=== PATIENT | female | born 1990 | race Hispanic/Latino ===

== ENCOUNTER 2017-08-09 20:29 | Emergency (ER) | payer BC ==
--- OUTSIDE RECORDS SUMMARY | 2017-08-09 20:31 | XMS REPORT ---
:1990 Author Organization [facility] Care Team Providers Name Role Phone Jennifer Roberson Provider Role Unavailable Allergies No Known Allergies Problems Problem Type Condition Code Onset Dates Condition Status Problem Normal in second trimester Z34.92 Active Assessment Normal in second trimester Z34.92 Active Problem BMI 36.0-36.9,adult Z68.36 Active Assessment BMI 36.0-36.9,adult Z68.36 Active Medications No Known Medications Results No Known Results Summary Purpose [facility] Submission
--- OUTSIDE RECORDS SUMMARY | 2017-08-09 20:31 | XMS REPORT ---
:1990 Author Organization [employer] Care Team Providers Name Role Phone Jennifer Roberson Provider Role Unavailable Allergies, Adverse Reactions, Alerts Substance Reaction Event Type N.K.D.A. Info Not Available Non Drug Allergy Problems Problem Type Condition Code Onset Dates Condition Status Assessment Lower abdominal pain, unspecified R10.30 Active Assessment Other specified related O26.899 Active conditions, unspecified trimester Problem Normal in second Z34.92 Active trimester Medications No Known Medications Results Name Result Date Reference Range Unit Abnormality Flag URINALYSIS AUTO W/O SCOPE (93099) ----NIT Neg 20170630 ----URO 0.2 20170630 ----PROTEIN Neg 20170630 ----pH 6.0 20170630 ----BLO Trace 20170630 ----GLUCOSE Neg 20170630 ----TARIK 1+ 20170630 ----BILIRUBIN Neg [id number] ----KETONES Trace 20170630 ----SPECIFIC GRAVITY 1.025 20170630 Summary Purpose eClinicalWorks Submission
--- OUTSIDE RECORDS SUMMARY | 2017-08-09 20:31 | XMS REPORT ---
:1990 Author Organization [employer] Care Team Providers Name Role Phone Jennifer Roberson Provider Role Unavailable Allergies No Known Allergies Problems Problem Type Condition Code Onset Dates Condition Status Assessment Normal in second trimester Z34.92 Active Problem Normal in second trimester Z34.92 Active Medications No Known Medications Results No Known Results Summary Purpose [facility] Submission
--- OUTSIDE RECORDS SUMMARY | 2017-08-09 20:31 | XMS REPORT ---
:1990 Author Organization eClinicalWorks Care Team Providers Name Role Phone Jennifer Roberson Provider Role Unavailable Allergies No Known Allergies Problems Problem Type Condition Code Onset Dates Condition Status Assessment Normal in second trimester Z34.92 Active Problem Normal in second trimester Z34.92 Active Medications No Known Medications Results No Known Results Summary Purpose [employer]ClinicalWorks Submission
--- NOTE | 2017-08-09 21:16 | RAD REPORT ---
EXAM DESCRIPTION: US - Abdomen Exam Limited - 08/09/2017 9:06 pm CLINICAL HISTORY: Abdominal pain, right upper quadrant pain, nonfasting patient COMPARISON: None. FINDINGS: No gallstones, sludge or other abnormalities within the gallbladder lumen. There is no wal l thickening or pericholecystic fluid. Gallbladder is partially contracted. Patient was not fully fas ting for the examination. No common duct stone or biliary tree dilatation identified. IMPRESSION: No gallbladder or biliary tree abnormality.
[2017-08-09 21:20] LABS: Absolute Lymphocytes (CBC) 2.6 K/uL (0.7-4.9); Absolute Monocytes 0.6 K/uL (0.1-1.3); Absolute Neutrophil 7.9 K/uL (1.8-8.0); Basophils % 0.3 % (0-1.3); Eosinophils % 0.2 % (0-4.4); Hematocrit 34.4 % (36.0-45.0); Lymphocytes % 23.4 % (15.3-44.8); MCH 31.3 pg (27.0-35.0); MCV 90.7 fL (80-100); MPV 7.9 fL (7.6-11.3); Monocytes % 5.7 % (3.3-12.3); RBC Red Blood Cell Count 3.79 M/uL (3.86-4.86)
[2017-08-09 21:24] LABS: ALT/SGPT 17 U/L (12-78); AST/SGOT 18 U/L (15-37); Albumin 2.6 g/dL (3.4-5.0); Alkaline Phosphatase 92 U/L (45-117); BUN Blood Urea Nitrogen 8 mg/dL (7-18); Bicarbonate 23 mmol/L (21-32); Bilirubin Direct < 0.1 mg/dL (0-0.2); Bilirubin Total 0.1 mg/dL (0.2-1.0); Glucose Level 72 mg/dL (74-106); Lipase 239 U/L (73-393); Potassium 3.7 mmol/L (3.5-5.1); Protein, Total 6.4 g/dL (6.4-8.2); Sodium Level 138 mmol/L (136-145)
--- NOTE | 2017-08-09 21:39 | ER ---
Nurse's Notes [facility] Name: Cydney Mccann Age: 27 yrs Sex: Female : 1990 Arrival Date: 08/09/2017 Time: 20:31 Bed 16 Private MD: Diagnosis: Gastritis, unspecified;Gastro-esophageal reflux disease Presentation: 08/09 20:36 Presenting complaint: Patient states: epigastric pain, increased after meals. pt denies ak1 N/V. pt 30 weeks , cleared by L\T\Shira stafford. Dr. 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 Transition of care: patient was not received from another setting of care. Onset of symptoms is unknown. Risk Assessment: Do you want to hurt yourself or someone else? Patient reports no desire to harm self or others. Initial Sepsis Screen: Does the patient meet any 2 criteria? No. Patient's initial sepsis screen is negative. Does the patient have a suspected source of infection? No. Patient's initial sepsis screen is negative. Care prior to arrival: None. 20:36 Method Of Arrival: Ambulatory ak1 20:36 Acuity: JEY 3 ak1 MANAGER JAVA: 20:38 LMP 01/08/2017, Verified, EDC 10/15/2017, Gestational age from LMP: 30 weeks 4 ak1 days Historical: - Allergies: 20:38 No Known Allergies; ak1 - Home Meds: 20:38 None [Active]; ak1 - PMHx: 20:38 None; ak1 - PSHx: 20:38 None; ak1 - Immunization history:: Adult Immunizations up to date. - Social history:: Smoking status: Patient/guardian denies using tobacco. - Ebola Screening: : No symptoms or risks identified at this time. - Family history:: not pertinent. - Hospitalizations: : No recent hospitalization is reported. Screenin:38 Abuse screen: Denies threats or abuse. Denies injuries from another. Nutritional rv screening: No deficits noted. Tuberculosis screening: No symptoms or risk factors identified. Fall Risk None identified. Assessment: 20:36 General: Appears in no apparent distress. comfortable, Behavior is calm, cooperative. rv Pain: Complains of pain in abdomen Pain currently is 5 out of 10 on a pain scale. Neuro: Level of Consciousness is awake, alert, obeys commands, Oriented to person, place, time, situation. Cardiovascular: Heart tones S1 S2 present. Respiratory: Airway is patent. GI: Bowel sounds present X 4 quads. Abd is soft and non tender X 4 quads. Reports upper abdominal pain, Pain is 5 out of 10 on a pain scale. : No signs and/or symptoms were reported regarding the genitourinary system. EENT: No signs and/or symptoms were reported regarding the EENT system. Derm: Skin is intact. Musculoskeletal: No signs and/or symptoms reported regarding the musculoskeletal system. 20:51 Reassessment: PT TO U/S WITH TRAVEL CLERK. bp 21:18 Reassessment: Patient appears in no apparent distress at this time. Patient and/or aa1 family updated on plan of care and expected duration. Pain level reassessed. Patient is alert, oriented x 3, equal unlabored respirations, skin warm/dry/pink. Pt back from u/s. 21:49 Reassessment: PT D/C HOME AMBULATORY WITH FAMILY, DX WITH GASTRITIS AND GERD. bp Vital Signs: 20:38 BP 123 / 79; Pulse 87; Resp 20; Temp 98.6(O); Pulse Ox 100% on R/A; Weight 97.52 kg ak1 (R); Height 5 ft. 4 in. (162.56 cm) (R); Pain 5/10; 21:18 BP 102 / 72; Pulse 82; Resp 16; Pulse Ox 99% on R/A; aa1 21:48 BP 102 / 63; Pulse 86; Resp 18; Pulse Ox 99% ; aa1 20:38 Body Mass Index 36.90 (97.52 kg, 162.56 cm) ak1 ED Course: 20:31 Patient arrived in ED. es 20:34 Jb Price MD is Attending Physician. rn 20:37 Triage completed. ak1 20:38 Arm band placed on Patient placed in an exam room, on a stretcher, on pulse oximetry, ak1 Patient notified of wait time. 20:38 Patient has correct armband on for positive identification. Placed in gown. Bed in low rv position. Call light in reach. Side rails up X 1. Adult w/ patient. Pulse ox on. NIBP on. 20:51 Inserted saline lock: 20 gauge in left forearm, using aseptic technique. Blood bp collected. 21:06 US Abdomen Limited In Process Unspecified. EDMS 21:16 Gaby Jorgensen, RN is Primary Nurse. aa1 21:49 No provider procedures requiring assistance completed. IV discontinued, intact, bp bleeding controlled, No redness/swelling at site. Pressure dressing applied. Administered Medications: No medications were administered Outcome: 21:38 Discharge ordered by MD. rn 21:49 Discharged to home ambulatory, with family. bp 21:49 Condition: stable 21:49 Discharge instructions given to patient, Instructed on discharge instructions, follow up and referral plans. Demonstrated understanding of instructions, follow-up care. 21:50 Patient left the ED. bp Signatures: Dispatcher [employer] EDDE Gaby Jorgensen, RN RN aa1 Penny Covington Roman, MD MD rn Krenek, Amber, RN RN ak1 Tyrone Oquendo RN RN Adrián Solitario, RN RN rv
--- NOTE | 2017-08-09 21:39 | EDPHYS ---
Physician Documentation [facility] Name: Cydney Mccann Age: 27 yrs Sex: Female : 1990 Arrival Date: 08/09/2017 Time: 20:31 Bed 16 Private MD: ED Physician Jb Price HPI: 08/09 21:36 This 27 yrs old Female presents to ER via Ambulatory with complaints of rn Abdominal Pain. 21:36 The patient presents with abdominal pain in the epigastric area. Onset: The rn symptoms/episode began/occurred yesterday. The symptoms do not radiate. Associated signs and symptoms: Pertinent negatives: nausea and vomiting, blood in stools, fever, vomiting, vomiting blood. The symptoms are described as achy. Modifying factors: The symptoms are alleviated by nothing, the symptoms are aggravated by food. Severity of pain: At its worst the pain was mild in the emergency department the pain is unchanged. The patient has not experienced similar symptoms in the past. The patient has not recently seen a physician. Reports epigastric aching after eating, improved with tums. . 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 - Social history:: Smoking status: Patient/guardian denies using tobacco. - Ebola Screening: : No symptoms or risks identified at this time. - Family history:: not pertinent. - Hospitalizations: : No recent hospitalization is reported. ROS: 21:36 Constitutional: Negative for fever, chills, and weight loss, Eyes: Negative for injury, rn pain, redness, and discharge, Cardiovascular: Negative for chest pain, palpitations, and edema, Respiratory: Negative for shortness of breath, cough, wheezing, and pleuritic chest pain, Abdomen/GI: Negative for vomiting, diarrhea, and constipation, MS/Extremity: Negative for injury and deformity, Skin: Negative for injury, rash, and discoloration, Neuro: Negative for headache, weakness, numbness, tingling, and seizure. Exam: 21:36 Constitutional: This is a well developed, well nourished patient who is awake, alert, rn and in no acute distress. Abdomen/GI: Soft, non-tender, with normal bowel sounds. No distension or tympany. No guarding or rebound. No evidence of tenderness throughout. Skin: Warm, dry with normal turgor. Normal color with no rashes, no lesions, and no evidence of cellulitis. Vital Signs: 20:38 BP 123 / 79; Pulse 87; Resp 20; Temp 98.6(O); Pulse Ox 100% on R/A; Weight 97.52 kg ak1 (R); Height 5 ft. 4 in. (162.56 cm) (R); Pain 5/10; 21:18 BP 102 / 72; Pulse 82; Resp 16; Pulse Ox 99% on R/A; aa1 21:48 BP 102 / 63; Pulse 86; Resp 18; Pulse Ox 99% ; aa1 20:38 Body Mass Index 36.90 (97.52 kg, 162.56 cm) ak1 MDM: 20:38 Patient medically screened. rn 21:36 Differential diagnosis: cholecystitis, Cholelithiasis, gastritis, gastroesophageal rn reflux disease, pancreatitis, Peptic Ulcer Disease, urinary tract infection. Data reviewed: vital signs, nurses notes, lab test result(s), radiologic studies, ultrasound, and as a result, I will discharge patient. Counseling: I had a detailed discussion with the patient and/or guardian regarding: the historical points, exam findings, and any diagnostic results supporting the discharge/admit diagnosis, lab results, radiology results, the need for outpatient follow up, to return to the emergency department if symptoms worsen or persist or if there are any questions or concerns that arise at home. Special discussion: Based on the patient's Hx, exam, and Dx evaluation, there is no indication for emergent surgery or inpatient Tx. It is understood by the patient/guardian that if the Sx's persist or worsen they need to return immediately for re-evaluation. I discussed with the patient/guardian in detail that at this point there is no indication for admission to the hospital. It is understood, however, that if the symptoms persist or worsen the patient needs to return immediately for re-evaluation. Based on the history and exam findings, there is no indication for further emergent testing or inpatient evaluation. I discussed with the patient/guardian the need to see the OB Gyne specialist for further evaluation of the symptoms. 08/09 20:44 Order name: Basic Metabolic Panel; Complete Time: 21:36 rn 08/09 20:44 Order name: CBC with Diff; Complete Time: 21:36 rn 08/09 20:44 Order name: Hepatic Function; Complete Time: 21:36 rn 08/09 20:44 Order name: Lipase; Complete Time: 21:36 rn 08/09 20:44 Order name: US Abdomen Limited; Complete Time: 21:19 rn Administered Medications: No medications were administered Disposition: 08/09/17 21:38 Discharged to Home. Impression: Gastritis, unspecified, Gastro-esophageal reflux disease. - Condition is Stable. - Discharge Instructions: Gastritis, Adult, Gastroesophageal Reflux Disease, Adult. - Medication Reconciliation Form, Thank You Letter, Antibiotic Education, Prescription Opioid Use form. - Follow up: Private Physician; When: As needed; Reason: Recheck today's complaints, Re-evaluation by your physician. - Problem is new. - Symptoms have improved. Signatures: Dispatcher [employer] EDMS Jb Price MD MD rn Krenek, Amber, RN RN ak1 Tyrone Oquendo RN RN bp Corrections: (The following items were deleted from the chart) 21:50 21:38 08/09/2017 21:38 Discharged to Home. Impression: Gastritis, unspecified; bp Gastro-esophageal reflux disease. Condition is Stable. Forms are Medication Reconciliation Form, Thank You Letter, Antibiotic Education, Prescription Opioid Use. Follow up: Private Physician; When: As needed; Reason: Recheck today's complaints, Re-evaluation by your physician. Problem is new. Symptoms have improved. rn
[2017-08-09 21:58] VITALS: TEMP 98.6
[2017-08-09 21:59] VITALS: O2SAT 99
[2017-08-09 22:00] VITALS: BP 102/63
== END 2017-08-09 21:50 | disposition home or self-care (01) ==
LOC: ER 20:29
DX: K29.70 Gastritis, unspecified, without bleeding (principal); K21.9 Gastro-esophageal reflux disease without esophagitis
CPT/HCPCS: 36415; 76705; 80048; 80076; 83690; 85025; 99284

== ENCOUNTER 2017-10-19 09:50 | Inpatient (IN) | payer BC ==
--- OUTSIDE RECORDS SUMMARY | 2017-10-19 09:57 | XMS REPORT ---
[...] Unit Abnormality Flag URINALYSIS AUTO W/O SCOPE (15273) ----NIT Neg 20170630 ----URO 0.2 20170630 ----PROTEIN Neg 20170630 ----pH 6.0 20170630 ----BLO Trace 20170630 ----GLUCOSE Neg 20170630 ----TARIK 1+ 20170630 ----BILIRUBIN Neg 20170630 ----KETONES Trace 20170630 ----SPECIFIC GRAVITY 1.025 20170630 Summary Purpose eClinicalWorks Submission
--- OUTSIDE RECORDS SUMMARY | 2017-10-19 09:57 | XMS REPORT ---
:1990 Author Organization eClinicalWorks Care Team Providers Name Role Phone Jennifer Roberson Provider Role Unavailable Allergies No Known Allergies Problems Problem Type Condition Code Onset Dates Condition Status Assessment Normal in second trimester Z34.92 Active Problem Normal in second trimester Z34.92 Active Medications No Known Medications Results No Known Results Summary Purpose [facility] Submission
--- OUTSIDE RECORDS SUMMARY | 2017-10-19 09:57 | XMS REPORT ---
:1990 Author Organization [employer] [employer] Care Team Providers Name Role Phone Jennifer Roberson Provider Role Unavailable Allergies No Known Allergies Problems Problem Type Condition Code Onset Dates Condition Status Problem Normal in second trimester Z34.92 Active Assessment Normal in second trimester Z34.92 Active Problem BMI 36.0-36.9,adult Z68.36 Active Assessment BMI 36.0-36.9,adult Z68.36 Active Medications No Known Medications Results No Known Results Summary Purpose [employer] Submission
--- OUTSIDE RECORDS SUMMARY | 2017-10-19 09:57 | XMS REPORT ---
:1990 Author Organization eClinicalWorks Care Team Providers Name Role Phone Jennifer Roberson Provider Role Unavailable Allergies No Known Allergies Problems Problem Type Condition Code Onset Dates Condition Status Problem BMI 36.0-36.9,adult Z68.36 Active Problem Encounter for supervision of normal Z34.03 Active first in third trimester Assessment Encounter for supervision of normal Z34.03 Active first in third trimester Assessment BMI 36.0-36.9,adult Z68.36 Active Medications No Known Medications Results No Known Results Summary Purpose eClinicalWorks Submission
--- OUTSIDE RECORDS SUMMARY | 2017-10-19 09:58 | XMS REPORT ---
:1990 Author Organization eClinicalWorks Care Team Providers Name Role Phone Jennifer Roberson Provider Role Unavailable Allergies No Known Allergies Problems Problem Type Condition Code Onset Dates Condition Status Problem Encounter for supervision of normal Z34.03 Active first in third trimester Problem BMI 38.0-38.9,adult Z68.38 Active Assessment Encounter for supervision of normal Z34.03 Active first in third trimester Medications Medication Code System Code Instructions Start Date End Date Status Dosage Breast Pump [facility] [id number] - Oct 11, Active as directed 2017 Results No Known Results Summary Purpose eClinicalWorks Submission
--- OUTSIDE RECORDS SUMMARY | 2017-10-19 09:58 | XMS REPORT ---
:1990 Author Organization eClinicalWorks Care Team Providers Name Role Phone Jennifer Roberson Provider Role Unavailable Allergies No Known Allergies Problems Problem Type Condition Code Onset Dates Condition Status Problem Encounter for supervision of normal Z34.03 Active first in third trimester Problem BMI 38.0-38.9,adult Z68.38 Active Medications Medication Code System Code Instructions Start Date End Date Status Dosage Breast Pump [facility] [id number] - Oct 11, Active as directed 2017 Results No Known Results Summary Purpose [employer] Submission
--- OUTSIDE RECORDS SUMMARY | 2017-10-19 09:58 | XMS REPORT ---
:1990 Author Organization eClinicalWorks Care Team Providers Name Role Phone Jennifer Roberson Provider Role Unavailable Allergies No Known Allergies Problems Problem Type Condition Code Onset Dates Condition Status Problem Encounter for supervision of normal Z34.03 Active first in third trimester Problem BMI 37.0-37.9, adult Z68.37 Active Assessment BMI 37.0-37.9, adult Z68.37 Active Assessment Encounter for supervision of normal Z34.03 Active first in third trimester Medications No Known Medications Results No Known Results Summary Purpose eClinicalWorks Submission
--- OUTSIDE RECORDS SUMMARY | 2017-10-19 09:58 | XMS REPORT ---
:1990 Author Organization eClinicalWorks Care Team Providers Name Role Phone Jennifer Roberson Provider Role Unavailable Allergies No Known Allergies Problems Problem Type Condition Code Onset Dates Condition Status Problem Encounter for supervision of normal Z34.03 Active first in third trimester Problem BMI 37.0-37.9, adult Z68.37 Active Assessment Encounter for supervision of normal Z34.03 Active first in third trimester Medications No Known Medications Results No Known Results Summary Purpose eClinicalWorks Submission
--- OUTSIDE RECORDS SUMMARY | 2017-10-19 09:58 | XMS REPORT ---
[...] Active first in third trimester Assessment BMI 37.0-37.9, adult Z68.37 Active Medications No Known Medications Results No Known Results Immunizations Vaccine Administration Date TDAP > 7 Years-Adacel September 13, 2017 Summary Purpose eClinicalWorks Submission
--- OUTSIDE RECORDS SUMMARY | 2017-10-19 09:58 | XMS REPORT ---
[...] Active first in third trimester Assessment BMI 38.0-38.9,adult Z68.38 Active Medications No Known Medications Results No Known Results Summary Purpose eClinicalWorks Submission
--- OUTSIDE RECORDS SUMMARY | 2017-10-19 09:58 | XMS REPORT ---
:1990 Author Organization eClinicalWorks Care Team Providers Name Role Phone Jennifer Roberson Provider Role Unavailable Allergies No Known Allergies Problems Problem Type Condition Code Onset Dates Condition Status Problem Encounter for supervision of normal Z34.03 Active first in third trimester Problem BMI 37.0-37.9, adult Z68.37 Active Medications No Known Medications Results No Known Results Summary Purpose [employer] Submission
--- OUTSIDE RECORDS SUMMARY | 2017-10-19 09:58 | XMS REPORT ---
[...] trimester Assessment BMI 38.0-38.9,adult Z68.38 Active Medications Medication Code System Code Instructions Start Date End Date Status Dosage Breast Pump [facility] [id number] - Oct 11, Active as directed 2017 Results No Known Results Summary Purpose eClinicalWorks Submission
[2017-10-19] MEDS ORDERED: Ringers Lactate 1,000 ML IV PRN (10:17)
[2017-10-19] MEDS ORDERED: ONDANSETRON 4 MG/2 ML VIAL IV PRN (10:20)
[2017-10-19] MEDS ORDERED: DIPHENHYDRAMINE 50 MG/ML VIAL IV PRN (10:20)
[2017-10-19] MEDS ORDERED: METOCLOPRAMIDE 10 MG/2mL INJ IV PRN (10:20)
[2017-10-19] MEDS ORDERED: ACETAMINOPHEN 500 MG TAB PO PRN (10:20)
[2017-10-19] MEDS ORDERED: miSOPROStol 100 MCG TAB PO ONE (10:25)
--- NOTE | 2017-10-19 10:46 | RAD REPORT ---
EXAM DESCRIPTION: US - OB Limited - 10/19/2017 10:26 am CLINICAL HISTORY: presentation Limited examination. COMPARISON: OB Complete dated 05/30/2017 FINDINGS: A limited examination was requested by the referring physician. A single cephalic presenting gestation is identified. Heart rate normal. Estimated age is 40 weeks 5 days. IMPRESSION: Single live intrauterine fetus in the cephalic presentation. A limited study was request ed.
[2017-10-19] MEDS ORDERED: Ringers Lactate 1,000 ML IV SCH (11:00)
[2017-10-19 11:54] LABS: RPR Titer ND
[2017-10-19 11:56] LABS: Absolute Lymphocytes (CBC) 1.7 K/uL (0.7-4.9); Absolute Monocytes 0.4 K/uL (0.1-1.3); Absolute Neutrophil 6.5 K/uL (1.8-8.0); Basophils % 0.2 % (0-1.3); Hematocrit 35.4 % (36.0-45.0); MCH 30.8 pg (27.0-35.0); MCV 89.6 fL (80-100); MPV 8.4 fL (7.6-11.3); Monocytes % 5.1 % (3.3-12.3); RBC Red Blood Cell Count 3.95 M/uL (3.86-4.86)
[2017-10-19 12:01] LABS: Urine Appearance CLEAR; Urine Bilirubin NEGATIVE (NEG); Urine Blood NEGATIVE (NEG); Urine Color YELLOW; Urine Glucose NEGATIVE (NEG); Urine Protein NEGATIVE (NEG); Urine Urobilinogen 0.2 mg/dL (0.2-1.0); Urine pH 5.5 (5.0-7.0)
[2017-10-19 12:09] LABS: Urine Microscopic Reflex NO UMIC
[2017-10-19 12:11] LABS: BUN Blood Urea Nitrogen 8 mg/dL (7-18); Bicarbonate 24 mmol/L (21-32); Glucose Level 79 mg/dL (74-106); Potassium 3.9 mmol/L (3.5-5.1); Sodium Level 140 mmol/L (136-145)
[2017-10-19 12:34] VITALS: BMI 39.4
--- NOTE | 2017-10-19 15:43 | P.HP ---
Certification for Inpatient Patient admitted to: Inpatient With expected LOS: >2 Midnights Patient will require the following post-hospital care: None Practitioner: I am a practitioner with admitting privileges, knowledge of patient current condition, hospital course, and medical plan of care. Services: Services provided to patient in accordance with Admission requirements found in Title 42 Section 412.3 of the Code of Federal Regulations Patient History Date of Service: 10/19/17 Reason for admission: Elective induction of labor History of Present Illness: 27-year-old G 1 at 40 weeks and 5 days presents for elective induction of labor. She is had adequate care, and transferred to [facility] in mid 2nd trimester. has been complicated by obesity with BMI of 39.5, approximating weight gain during : 50 lb. CHRISTOPHER: 10/14/2017. GBS negative Allergies No Known Allergies Allergy (Unverified 04/24/16 20:51) Home Medications: Pnv Cmb#95/Ferrous Fumarate/FA [ Tablet] 1 each PO DAILY 10/19/17 - Past Medical/Surgical History Has patient received pneumonia vaccine in the past: No Diabetic: No Past Medical History: Patient denies medical history Past Surgical History: Patient denies surgical history - Family History Mother -: Hypertension, Other (see notes) Notes: TB (latent) was already treated Father -: Hypertension, Diabetes - Social History Smoking Status: Never smoker Alcohol use: No CD- Drugs: No Caffeine use: No Place of Residence: Home Review of Systems 10-point ROS is otherwise unremarkable Physical Examination - Vital Signs Temperature: 98.0 F Blood Pressure: 125/79 Pulse: 75 Respirations: 18 - Physical Exam General: Alert, In no apparent distress, Oriented x3 HEENT: Atraumatic, Normocephalic Respiratory: Other (Normal effort) Cardiovascular: Normal pulses Musculoskeletal: Swelling (3+ B/L pedal edema) Integumentary: No rashes, No breakdown Neurological: Normal speech, Normal strength at 5/5 x4 extr - Studies Laboratory Data (last 24 hrs) 10/19/17 11:39: Sodium 140, Potassium 3.9, BUN 8, Creatinine 0.40 L, Glucose 79 10/19/17 11:39: WBC 8.7, Hgb 12.2, Hct 35.4 L, Plt Count 212 Female Exam - Female Pelvic Cervix: Dilation (2), Effacement (50), station (-3) - Obstetrics heart rate tracing: Category 1 Contractions: Frequency (Irregular) Amniotic membrane: Intact Assessment and Plan - Problems (Diagnosis) (1) Elective induction of labor planned Current Visit: Yes Status: Acute Plan: Admit patient to L&D. Routine labs ordered. Will start cervical ripening with Cytotec, given orally. May ambulate during ripening process if tracing is reassuring, discussed with RN. Transition to Pitocin when favorable. Patient plans on getting an epidural eventually for pain control. - Advance Directives Does patient have a Living Will: No Does patient have a Durable POA for Healthcare: No
[2017-10-19] MEDS ORDERED: OXYTOCIN/LR 20 UNIT/1,000 ML BAG IV SCH (18:00)
[2017-10-19 21:47] LABS: RPR (Rapid Plasma Reagin) NON-REACT (NON-REACT)
--- NOTE | 2017-10-19 23:05 | P.PN ---
Date of Service: 10/19/17 Late entry from 20:15 RN called to notify of SROM with clear fluid noted. She plans on getting an epidural for pain control. Chart reviewed. Mild range BP. FHR: cat I, Hissop: q 3-5 min Continue pitocin for augmentation. Epidural per patient request, insert lopez with placement.
[2017-10-19] MEDS ORDERED: FENTANYL CITR 100 MCG/2 ML IV ONE (23:29)
[2017-10-19] MEDS ORDERED: ROPIVACAINE HCL 100 ML IV PRN (23:29)
[2017-10-20] MEDS ORDERED: FENTANYL CITR 100 MCG/2 ML ONE (00:01)
[2017-10-20] MEDS ORDERED: LIDOCAINE 2% MPF 5 ML VIAL IV ONE (00:15)
[2017-10-20] MEDS ORDERED: LIDOCAINE 2% MPF 5 ML VIAL ONE (00:16)
[2017-10-20] MEDS ORDERED: ROPIVACAINE HCL 0.2% 20ML AMP IV ONE (00:35)
[2017-10-20] MEDS ORDERED: ROPIVACAINE HCL 20 ML ONE (00:42)
[2017-10-20] MEDS ORDERED: BUTORPHANOL 1 MG/ML INJ IV ONE (03:37)
[2017-10-20] MEDS ORDERED: FENTANYL CITR 100 MCG/2 ML IV ONE (05:00)
--- NOTE | 2017-10-20 09:26 | P.PN ---
Date of Service: 10/20/17 Pt seen and examined. She reports some pain with a little improvement since epidural was redone, but states her pain on the left side is still increased. Vitals reviewed Fetus: 145, min-mod prasanna, no accelerations, no decelerations. +response to scalp stimulation Cervix: 6-7/100/-1 Continue current care and increase pitocin per protocol. Due to level of discomfort with slight touch on vaginal exam, will notify anesthesia once again to reassess. MF status is overall reassuring.
[2017-10-20] MEDS ORDERED: LIDOCAINE 2% INJ, 20 mL 20 ML ONE (14:51)
[2017-10-20] MEDS ORDERED: CARBOPROST TROME 250 MCG/ML IM ONE (14:51)
[2017-10-20] MEDS ORDERED: METHYLERGONOVINE 0.2MG/ML AMP IM ONE (14:51)
[2017-10-20] MEDS ORDERED: MORPHINE 4 MG/ML SYR ONE (18:08)
[2017-10-20] MEDS ORDERED: miSOPROStol 100 MCG TAB ONE (18:20)
[2017-10-20] MEDS ORDERED: ONDANSETRON 4 MG (ODT) TAB PO PRN (18:44)
[2017-10-20] MEDS ORDERED: DIPHENHYDRAMINE 25 MG TAB/CAP PO PRN (18:44)
[2017-10-20] MEDS ORDERED: METOCLOPRAMIDE 5 MG TAB PO PRN (18:44)
[2017-10-20] MEDS ORDERED: ACETAMINOPHEN 500 MG TAB PO PRN (18:47)
--- NOTE | 2017-10-20 18:49 | P.OP ---
Preoperative diagnosis: Term IUP, Elective induction of labor Postoperative diagnosis: Same Primary procedure: Anesthesia: Epidural Estimated blood loss: 500 cc Specimen: Placenta Findings: See Operative Report Operative Technique: FINDINGS: Male fetus in OA position, APGARS of 9/9 at 1 and 5 minutes respectively, weight of 7 lb 1 oz, clear amniotic fluid. Normal appearing placenta. First degree midline laceration, vaginal side wall and labial tears. Stage I: 12h 45 min; Stage II: 6h 58 min. HISTORY OF PRESENT ILLNESS: The patient is a 27-year-old female who is a G1 at 40w5d who was admitted for an elective induction of labor. She had adequate care and was uncomplicated. Labs were normal and she had otherwise routine care. On admission, she was noted to be 2-3 cm. She denied complaints and noted positive movement. PROCEDURE DETAILS: The patient was admitted to Labor and Delivery for induction , which was done with cytotec. She then had SROM with clear fluid noted. Pain increased and she requested an epidural for pain control, which was placed with good result. Labor progressed normally. She had a spontaneous vaginal delivery of a live born male with clear fluid from an OA position over an intact perineum at 17:43. After controlled delivery of the head the shoulders and body followed without difficulty. Bulb suctioning was done. The infant was placed on the patient's abdomen for skin to skin contact. The cord was clamped and cut. Findings as stated above. There was no depression. was crying, vigorous, and moving all extremities. Spontaneous delivery of an intact placenta with a three-vessel cord was noted at 17:55. On examination, there was 1st degree midline laceration. It was repaired by placing a figure of 8 using 2-0 vicryl. On vaginal exam, there were B/L vaginal sidewall lacerations and labial tears. They were repaired in the usual fashion using 3-0 chromic. Patient tolerated procedure well and there were no complications. Estimated blood loss was ~500 cc. Mother and infant are in recovery doing well at this time. Complications: None Fluids & blood products: mIVF Transferred to: Recovery Room Condition: Good
[2017-10-20 19:17] LABS: Absolute Lymphocytes (CBC) 1.2 K/uL (0.7-4.9); Absolute Monocytes 0.8 K/uL (0.1-1.3); Absolute Neutrophil 25.5 K/uL (1.8-8.0); Hematocrit 37.4 % (36.0-45.0); Lymphocytes % 4.5 % (15.3-44.8); MCH 31.2 pg (27.0-35.0); MCV 91.3 fL (80-100); MPV 8.6 fL (7.6-11.3); Monocytes % 2.7 % (3.3-12.3)
[2017-10-20 19:51] LABS: Blood Morphology Comment NOT SEEN (NOT SEEN); Platelet Estimate ADEQ; Potassium 4.7 mmol/L (3.5-5.1)
[2017-10-20] MEDS ORDERED: Gentamicin Inj 100 MG in NA CHLORIDE 0.9% 100 ML IVPB ONE (19:52)
[2017-10-20] MEDS ORDERED: AMPICILLIN SODIUM 250 MG/VIAL IV SCH (20:00)
[2017-10-20] MEDS: NA CHLORIDE 0.9% 1,000 ML IV SCH (20:10)
[2017-10-20] MEDS ORDERED: AMPICILLIN/SULBACTAM 3GM/VIAL ONE (20:45)
[2017-10-20] MEDS ORDERED: NA CHLORIDE 0.9% 100 ML IV ONE (20:55)
[2017-10-20] MEDS: AMPICILLIN/SULBACT 3 GM in NA CHLORIDE 0.9% 100 ML IVPB SCH (20:58)
[2017-10-20] MEDS ORDERED: Gentamicin Inj 120 MG in NA CHLORIDE 0.9% 100 ML IVPB ONE (21:00)
[2017-10-20] MEDS: CODEINE 30MG/APAP 300MG TAB PO PRN (21:12)
[2017-10-20] MEDS ORDERED: KETOROLAC 30 MG/ML INJ ONE (21:39)
[2017-10-20 23:09] LABS: Potassium 3.6 mmol/L (3.5-5.1)
[2017-10-21] MEDS ORDERED: AMPICILLIN/SULBACT 3 GM in NA CHLORIDE 0.9% 100 ML IVPB SCH ×2
[2017-10-21] MEDS: NA CHLORIDE 0.9% 1,000 ML IV SCH ×2 (00:45→17:49)
[2017-10-21] MEDS ORDERED: NA CHLORIDE 0.9% 100 ML IV ONE (02:22)
[2017-10-21] MEDS: AMPICILLIN/SULBACT 3 GM in NA CHLORIDE 0.9% 100 ML IVPB SCH ×4 (02:30→20:00)
[2017-10-21] MEDS: miSOPROStol 100 MCG TAB PO SCH ×2 (02:30→10:30)
[2017-10-21] MEDS: CODEINE 30MG/APAP 300MG TAB PO PRN ×2 (02:30→10:49)
[2017-10-21] MEDS ORDERED: GENTAMICIN 80 MG/100 ML BAG 80 MG/100 ML BAG IV SCH (04:00)
[2017-10-21 05:31] LABS: Absolute Lymphocytes (CBC) 2.4 K/uL (0.7-4.9); Absolute Neutrophil 16.4 K/uL (1.8-8.0); Basophils % 0.7 % (0-1.3); Hematocrit 30.3 % (36.0-45.0); Lymphocytes % 11.9 % (15.3-44.8); MCH 30.6 pg (27.0-35.0); MCV 89.2 fL (80-100); MPV 8.5 fL (7.6-11.3); Monocytes % 4.8 % (3.3-12.3); RBC Red Blood Cell Count 3.39 M/uL (3.86-4.86)
[2017-10-21] MEDS ORDERED: NA CHLORIDE 0.9% 1,000 ML IV ONE (09:08)
--- NOTE | 2017-10-21 09:11 | P.PN ---
Subjective Date of Service: 10/24/17 Chief Complaint: Elective induction of labor Subjective: Tolerating diet, Improving (Feels tired. Having some trouble with due to poor latching.), Doing well Review of Systems 10-point ROS is otherwise unremarkable Physical Examination - Vital Signs Temperature: 97.8 F Blood Pressure: 133/77 Pulse: 76 Respirations: 18 - Physical Exam General: Alert, In no apparent distress, Oriented x3 Respiratory: Other (Normal respiratory effort) Cardiovascular: Normal pulses Gastrointestinal: Other (Obese, soft, uterus firm but moderate TTP on exam) Musculoskeletal: Swelling (3+ pedal edema) Integumentary: No rashes, No breakdown Neurological: Normal speech, Normal strength at 5/5 x4 extr - Studies Laboratory Data (last 24 hrs) 10/21/17 05:11: WBC 19.9 H D, Hgb 10.4 L, Hct 30.3 L D, Plt Count 170 10/20/17 22:26: Sodium 142, Potassium 3.6, BUN 15, Creatinine 0.90, Glucose 111 H 10/20/17 19:05: Sodium 143, Potassium 4.7, BUN 12, Creatinine 1.10, Glucose 83 10/20/17 19:05: WBC 27.8 H* D, Hgb 12.8, Hct 37.4, Plt Count 205 Assessment And Plan - Current Problems (Diagnosis) (1) endometritis Status: Acute Plan: Due to pain on palpation and temp of 100.8 immediately pp, start treatment now with Unasyn. Discussed with patient IV antibiotics for 24-48 hours before discharge. Monitor vitals and increase IVF hydration. She verbalized understanding of plan and agreed. Questions answered. (2) (spontaneous vaginal delivery) Status: Acute Plan: Doing well on day 1, pp. Encouraged to continue , try nipple mccann and have nursing assist. Ambulation encouraged.
[2017-10-21] MEDS ORDERED: NA CHLORIDE 0.9% 1,000 ML ONE (09:13)
[2017-10-21] MEDS ORDERED: NS KCL 20MEQ 20 MEQ/1,000 ML BAG IV SCH (10:00)
[2017-10-21] MEDS ORDERED: miSOPROStol 100 MCG TAB ONE (10:43)
[2017-10-21 15:49] LABS: BUN Blood Urea Nitrogen 11 mg/dL (7-18); Bicarbonate 24 mmol/L (21-32); Glucose Level 85 mg/dL (74-106); Potassium 4.1 mmol/L (3.5-5.1); Sodium Level 143 mmol/L (136-145)
[2017-10-21] MEDS: IBUPROFEN 200 MG TAB PO PRN (20:10)
[2017-10-22] MEDS: NA CHLORIDE 0.9% 1,000 ML IV SCH ×2 (00:40→11:39)
[2017-10-22] MEDS: AMPICILLIN/SULBACT 3 GM in NA CHLORIDE 0.9% 100 ML IVPB SCH ×3 (02:00→14:00)
[2017-10-22 06:09] LABS: Absolute Lymphocytes (CBC) 2.6 K/uL (0.7-4.9); Absolute Monocytes 0.5 K/uL (0.1-1.3); Absolute Neutrophil 10.1 K/uL (1.8-8.0); Basophils % 0.3 % (0-1.3); Eosinophils % 0.1 % (0-4.4); Hematocrit 29.5 % (36.0-45.0); Lymphocytes % 19.9 % (15.3-44.8); MCH 30.9 pg (27.0-35.0); MCV 91.1 fL (80-100); MPV 8.1 fL (7.6-11.3); Monocytes % 3.5 % (3.3-12.3); RBC Red Blood Cell Count 3.24 M/uL (3.86-4.86)
[2017-10-22 06:19] LABS: BUN Blood Urea Nitrogen 9 mg/dL (7-18); Bicarbonate 25 mmol/L (21-32); Glucose Level 69 mg/dL (74-106); Potassium 3.9 mmol/L (3.5-5.1); Sodium Level 142 mmol/L (136-145)
[2017-10-22] MEDS ORDERED: Ringers Lactate 1,000 ML IV ONE (08:35)
[2017-10-22] MEDS: IBUPROFEN 200 MG TAB PO PRN (08:35)
[2017-10-23 18:08] LABS: HBsAG Nonreactive (Nonreactive)
[2017-10-24 07:56] VITALS: BP 133/77; TEMP 97.8
--- NOTE | 2017-10-24 08:06 | P.DS ---
Admission Date: 10/19/17 Discharge Date: 10/24/17 Disposition: ROUTINE DISCHARGE Discharge Condition: GOOD Reason for Admission: Elective induction of labor - Problems (1) endometritis Status: Resolved (2) (spontaneous vaginal delivery) Status: Acute Brief History of Present Illness: 27-year-old G 1 at 40 weeks and 5 days presents for elective induction of labor. She is had adequate care, and transferred [place] in mid 2nd trimester. has been complicated by obesity with BMI of 39.5, approximating weight gain during : 50 lb. CHRISTOPHER: 10/14/2017. GBS negative Hospital Course: Pt was admitted for an elective induction of labor, which progressed normally. Vaginal delivery was unremarkable. Her immediate pp course included development of endometritis. She was kept in-patient for IV antibiotics until 2 days pp and until improvement of clinical status. She was stable for d/c home after antibiotic therapy. Pre-discharged planned from day prior. RN denies any new findings and no concerns voiced. Vital Signs/Physical Exam: Temp Pulse Resp BP Pulse Ox 97.8 F 76 18 133/77 10/24/17 08:00 10/24/17 08:00 10/24/17 08:00 10/24/17 08:00 General: Other (Exam unchanged from prior) Other Physical/Emotional Findings: Predischarge planned. Laboratory Data at Discharge: WBC 13.3 K/uL (4.3-10.9) H D 10/22/17 05:23 Hgb 10.0 g/dL (12.0-15.0) L 10/22/17 05:23 Hct 29.5 % (36.0-45.0) L 10/22/17 05:23 Plt Count 196 K/uL (152-406) 10/22/17 05:23 Sodium 142 mmol/L (136-145) 10/22/17 05:23 Potassium 3.9 mmol/L (3.5-5.1) 10/22/17 05:23 BUN 9 mg/dL (7-18) 10/22/17 05:23 Creatinine 0.40 mg/dL (0.55-1.3) L 10/22/17 05:23 Glucose 69 mg/dL (74-106) L 10/22/17 05:23 Home Medications: Pnv Cmb#95/Ferrous Fumarate/FA [ Tablet] 1 each PO DAILY 10/19/17 Codeine/APAP [Tylenol #3*] 1 tab PO Q4H PRN #20 tab 10/21/17 Ibuprofen 800 mg PO Q8H PRN #30 tablet 10/21/17 New Medications: Codeine/APAP [Tylenol #3*] 1 tab PO Q4H PRN #20 tab PRN Reason: Pain Severe Ibuprofen 800 mg PO Q8H PRN #30 tablet PRN Reason: Abdominal Cramps Patient Discharge Instructions: Complete pelvic rest for 6 weeks . See doctor in one week. Notify immediately of fever, chills, or uncontrolled pain. Diet: Regular Activity: Ad abrahan Followup: Jennifer Roberson MD [ACTIVE - CAN ADMIT] -
== END 2017-10-22 16:30 | disposition home or self-care (01) | DRG 774 ==
LOC: 2ND-WC 09:50
PROVIDERS: ADMIT Obstetrics & Gynecology; ATTEND Obstetrics & Gynecology
PROC: 3E0P7VZ Introduction of Hormone into Female Reproductive, Via Natural or Artificial Opening (ICD-10-PCS; 2017-10-19)
PROC: 10E0XZZ Delivery of Products of Conception, External Approach (ICD-10-PCS; principal; 2017-10-20)
PROC: 0HQ9XZZ Repair Perineum Skin, External Approach (ICD-10-PCS; 2017-10-20)
DX: O70.0 First degree perineal laceration during delivery (principal); O86.12 Endometritis following delivery; N71.0 Acute inflammatory disease of uterus; O99.214 Obesity complicating childbirth; Z3A.40 40 weeks gestation of pregnancy; Z37.0 Single live birth
CPT/HCPCS: 36415; 76815; 80048; 81003; 85025; 86592; 86901; 87340; 88307; J0295; J0595; J1580; J2210; J2590; J2795; J3010; J7030